=== PATIENT | female | born 1995 | race Caucasian/White ===

== ENCOUNTER 2016-11-05 07:09 | Emergency (ER) | payer OTHER ==
[~2016-11-05 07:09] MED LIST: ELIMITE60 GM TP; LANTUS100 UNITS/ SQ; NOVOLOG100 UNIT/2 SQ
--- NOTE | 2016-11-06 06:22 | ER ---
ADMIT: 11/05/2016 RM/LOC: ER [facility] MR#: [id number] [address] [address] [address], [place] [address] Emergency Room Report SEX: F AGE: 20 : 1995 DATE: 11/05/2016 TIME: 0709 hours. Please refer to my T-sheet for complete H and P. Briefly, patient is a 20- year-old who comes in with cough and congestion for 3 days. She is a smoker. She has not been smoking much last couple days because of the cold. She has had a fever, bringing up phlegm. She is also diabetic. She has been watching her sugars careful. PHYSICAL EXAMINATION: VITAL SIGNS: Blood pressure 136/91, pulse 115, respirations 20, temp 96.6, and saturating 100%. GENERAL: No acute distress. HEENT: Grossly normal. LUNGS: Clear. HEART: Regular. ABDOMEN: Soft. EMERGENCY DEPARTMENT COURSE: I gave her dose of Zithromax 500 p.o. She is ready for discharge. ASSESSMENT: Bronchitis. PLAN: Watch sugars carefully. Return if worse. Stop smoking. Zithromax. Follow up with Dr. Shrestha. Efrain Huerta MD/ riddhi JOB #: [id number] CC: Efrain Huerta MD, Attending Physician Sina Shrestha MD, Family Physician
--- NOTE | 2016-11-08 13:28 | NUR ---
Received SAD referral. Attempted to contact pt via phone call. No answer, voice mail message left. Per SAD scale, pt has a history or cutting/OD. Pt scored a 1 on the SAD scale.
== END 2016-11-05 08:00 | disposition home or self-care (01) ==
LOC: ER 07:09
DX: J20.9 Acute bronchitis, unspecified (principal); E11.9 Type 2 diabetes mellitus without complications; F17.210 Nicotine dependence, cigarettes, uncomplicated; Z79.4 Long term (current) use of insulin

== ENCOUNTER 2016-11-12 19:19 | Emergency (ER) | payer OTHER ==
--- NOTE | 2016-11-13 10:34 | NUR ---
Pt triggered as a high ED user. Attempted to contact pt via phone call. No answer, voice mail message left.
--- NOTE | 2016-11-16 09:38 | NUR ---
Attempted to contact pt. No answer, unable to leave a voice mail message as the mailbox is full.
--- NOTE | 2016-11-18 15:06 | ER ---
ADMIT: 11/12/2016 RM/LOC: ER [facility] MR#: [id number] [address] [address] [address], [place] [address] Emergency Room Report SEX: F AGE: 20 : 1995 DATE: 11/12/2016 TIME: 1919 hours. Please refer to my T-sheet for complete H and P. HISTORY OF PRESENT ILLNESS: Briefly, the patient is a 20-year-old, comes in with abdominal pain since 6:00. She has not been able to drink much. She says it is kind of crampy. She does smoke half a pack a day, has diabetes, but she points to her right flank. No pain or burning with urination. PHYSICAL EXAMINATION: VITAL SIGNS: Her blood pressure is 131/62, pulse 89, respirations 16, temp 96.9, saturating 100%. GENERAL: She is in no acute distress. HEENT: Grossly normal. LUNGS: Clear. HEART: Regular. ABDOMEN: Tender to palpation in the right flank, she is kind of in between McBurney's point and her gallbladder. No rebound. No guarding. No CVA tenderness. EMERGENCY DEPARTMENT COURSE: CBC was normal except white count 10.4. Chemistries normal except potassium 3.2, CO2 of 20, glucose 242. Lipase is normal. UA showed 4 red cells. Urine was negative for . A CT scan revealed no evidence of appendicitis. She is given 2 L of normal saline bolus, 2 mg of morphine, 4 mg of Zofran, felt much better, ready for discharge. ASSESSMENT: 1. Abdominal pain, nonspecific. 2. Dehydrated. PLAN: Fluids. Return if worse. Tylenol. Follow up with her primary in 2 to 3 days to recheck Efrain Huerta MD/ riddhi JOB #: [id number] CC: Lorenzo Reyes MD, Attending Physician Benjamin Chávez MD, Family Physician
== END 2016-11-12 22:15 | disposition home or self-care (01) ==
LOC: ER 19:19
DX: E86.0 Dehydration (principal); R10.9 Unspecified abdominal pain; F17.210 Nicotine dependence, cigarettes, uncomplicated; E11.9 Type 2 diabetes mellitus without complications; Z79.4 Long term (current) use of insulin

== ENCOUNTER 2017-01-14 12:20 | Emergency (ER) | payer OTHER ==
--- NOTE | 2017-02-01 15:00 | ER ---
ADMIT: 01/14/2017 RM/LOC: ER [facility] MR#: [id number] [address] [address] [address] [place] [address] Emergency Room Report SEX: F AGE: 21 : 1995 DATE: 01/14/2017 ADDENDUM: This patient comes to the ER because she is having bilateral eye pain. She denies getting anything into her eye. She has a headache and is sensitive to light. 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 She states her vision is normal and has no drainage from her eyes. On physical exam, her eyes look completely normal. There is no redness or watering in the sclera. She does have a small conjunctival hematoma on the left eye, but she states she has had that for over a week. Her eyes are EOMI, PERRLA. I did check her intraocular pressure in both eyes and it was 21. I felt maybe this could be from her lack of sleep. 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 Since she really had no changes in her vision and no drainage from her eyes, I had no concerns for infection. I did consult with Dr. Reyes concerning treatment of this patient. She should follow up with Dr. Stewart in the next couple of days if not feeling better. Please see my T-sheet. JS Singh / Lorenzo Reyes MD / aronl JOB #: [id number] CC: Lorenzo Reyes MD, Attending Physician Jason Stewart MD, Family Physician
== END 2017-01-14 13:13 | disposition home or self-care (01) ==
LOC: ER 12:20
DX: H57.13 Ocular pain, bilateral (principal); F17.210 Nicotine dependence, cigarettes, uncomplicated; E11.9 Type 2 diabetes mellitus without complications; Z79.4 Long term (current) use of insulin

== ENCOUNTER 2017-01-29 20:31 | Emergency (ER) | payer OTHER ==
--- NOTE | 2017-02-03 01:31 | ER ---
ADMIT: 01/29/2017 RM/LOC: ER [facility] MR#: [id number] [address] [address] [address], [place] [address] Emergency Room Report SEX: F AGE: 21 : 1995 DATE: 01/29/2017 ADDENDUM: CHIEF COMPLAINT: Migraine. HISTORY OF PRESENT ILLNESS: The patient is a 21-year-old female with history of migraines. She also is an insulin-dependent diabetic and has been for 13 years. She states this migraine began 4 days ago and has been persistent since onset. She has a very slight tingling in her fingertips. PHYSICAL EXAMINATION: Unremarkable. Neurologically, she is intact. EMERGENCY ROOM COURSE: A urine was done, it is negative. She was given Benadryl 50 mg p.o., Reglan 10 mg IM, and Toradol 30 mg IM, and her symptoms were almost completely resolved. She feels fine going home. She is given instructions to follow up with Dr. Reaves if symptoms return and she is to maintain good control of her blood sugars. Cj Black MD/ aronl JOB #: [id number] CC: Cj Black MD, Attending Physician
== END 2017-01-30 00:30 | disposition home or self-care (01) ==
LOC: ER 20:31
DX: G43.909 Migraine, unspecified, not intractable, without status migrainosus (principal); E11.9 Type 2 diabetes mellitus without complications; F17.210 Nicotine dependence, cigarettes, uncomplicated; Z79.4 Long term (current) use of insulin

== ENCOUNTER 2017-02-03 22:03 | Emergency (ER) | payer OTHER ==
--- NOTE | 2017-02-04 13:29 | ER ---
ADMIT: 02/03/2017 RM/LOC: ER [facility] MR#: [id number] [address] [address] [address] [address] Emergency Room Report SEX: F AGE: 21 : 1995 DATE: 02/03/2017 HISTORY OF PRESENT ILLNESS: The patient is a 21-year-old female, came here with the left eye redness, irritation, and mild pain. The patient had similar episode 2 weeks ago. Per patient, lots of redness in the sclera of the right eye which resolved spontaneously and again it returned back. The patient also complains of mild pain and irritation. The patient denies any trauma and any similar symptoms in the past. PHYSICAL EXAMINATION: GENERAL: The patient was in no obvious pain or distress. EYES: Visual acuity on the right was 20/25, left 20/50, and both eyes 20/25. There are no signs of global trauma. Eyelids were inspected and they were everted and there were no foreign bodies. Conjunctiva has some injection on both sides, which is mild. Also, on the medial left eye, we have mild subconjunctival hemorrhage. Extraocular movements are good. Cornea does not look to be grossly normal. Pupils are 3 mm, reactive to light bilaterally. IMAGING: Ultrasound of the left eye did show any retinal detachment or vitreous hemorrhage. Ultrasound was done by ER physician at bedside. After using proparacaine, the right eye pressure was 50 mmHg and left eye pressure was 90 mmHg. DIAGNOSES: The patient was reassured and with diagnoses of conjunctivitis, possibly allergic and subconjunctival hemorrhage; was discharged to home with prescription for allergic conjunctivitis. Parker Chaidez MD/ riddhi JOB #: [id number] CC: Car Ham MD, Attending Physician Ghazala Lopez MD, Family Physician
== END 2017-02-03 23:07 | disposition home or self-care (01) ==
LOC: ER 22:03
DX: H10.12 Acute atopic conjunctivitis, left eye (principal); H11.32 Conjunctival hemorrhage, left eye